=== PATIENT | male | born 1985 | race Caucasian/White ===

== ENCOUNTER 2023-11-16 09:59 | Emergency (ER) | payer BC ==
[~2023-11-16] VITALS: Ht 152.4 cm; Wt 45.4 kg
[2023-11-16 10:08] VITALS: BP_SYST 99; PULSE 89; RESP 16; TEMP 97.1; O2SAT 99
[2023-11-16] MEDS: IBUPROFEN 100 MG/5 ML UDC PO ONE (10:54)
[2023-11-16] MEDS: ACETAMINOPHEN CHILDREN'S 160 MG/5 ML UDC ORAL.SUSP PO ONE (10:55)
[2023-11-16] MEDS: levoFLOXacin 500 MG TABLET PO ONE (11:14)
[2023-11-16] MEDS ORDERED: LEVO750T64 PO (13:24)
[2023-11-16 13:30] VITALS: BP_SYST 99; PULSE 89; RESP 16; TEMP 97.1; O2SAT 99
== END 2023-11-16 13:28 | disposition home or self-care (01) ==
LOC: SED 09:59
DX: H66.42 Suppurative otitis media, unspecified, left ear (principal); H61.002 Unspecified perichondritis of left external ear; Z79.899 Other long term (current) drug therapy
CPT/HCPCS: 70486; 99284